=== PATIENT | male | born 1950 | race Hispanic/Latino ===

== ENCOUNTER → 2019-01-15 | Outpatient (CLI) | payer MEDICARE | END | disposition home or self-care (01) | LOC: RAH 14:01 | PROVIDERS: ATTEND Urology | DX: N32.89 Other specified disorders of bladder (principal); R31.29 Other microscopic hematuria | CPT/HCPCS: 76770 ==

== ENCOUNTER → 2024-09-15 | Outpatient (CLI) | payer MEDICARE ==
--- NOTE | 2024-09-17 00:13 | HMCSR ---
APPROVED REPORT EXAM: Two-dimensional and M-mode echocardiogram with Doppler and color Doppler. INDICATION ICD: Cardiac murmur, unspecified R01.1 2D Dimensions RVDd4.5 cmLVEF(%)57.6 (>50%)LVED Vol(simp.)150.0 mL IVSd1.1 (0.7-1.1cm)FS(%)30 %LVES Vol(simp.)67.0 mL LVDd5.0 (3.8-5.6cm)Ao Root(2D)3.2 (2.0-3.7cm)LVEF(%, simp.)55 % PWd1.2 (0.7-1.1cm)LVOT diam2.0 (1.8-2.4cm)LA ESV INDEX (BP)38.08 mL/m2 LVDs3.5 (2.5-4.0cm)IVC diam1.1 cm Aortic Valve AoV Vmax2.1 m/Angelia Peak GR17.1 mmHgLVOT Vmax1.2 m/s AoV VTI0.5 mAo Mean GR8.8 mmHgLVOT VTI0.25 m JESUSITA (VMAX)1.7 cm2Al P1/2T609 msAVA (VTI) 1.7 cm2 Mitral Valve MV E Vmax81.1 cm/sDECEL Rlme253 ms MV A Wxmf625.6 cm/s E/A ratio0.6 MR Max PG88 mmHg TDI E/E' Baiuuh50.7E/E' Xggdxhq39.7 Pulmonary Valve PV Vmax1.0 m/sPV VTI0.21 mPV Mean GR2 mmHg PV Peak GR3.7 mmHgPI End Brianna. Phill 1.0 cm/s Tricuspid Valve TR Vmax1.4 m/sRAP (EST) 3 ynNxVTLZ56.1 mmHg TR Peak GR8.1 mmHg Left Ventricle The left ventricle is normal in size. No regional wall motion abnormalities noted. Moderate concentri c left ventricular hypertrophy. Left ventricular systolic function is normal, estimated LVEF 55 to 60 %. Stage I diastolic dysfunction. Right Ventricle The right ventricle is normal in size. The right ventricular systolic function is normal. Atria The left atrium is mildly dilated, 38 mL/m. The right atrium size is normal. Aortic Valve Aortic valve is trileaflet. The leaflets are moderately thickened and calcified. Mild aortic regurgit ation, pressure half-time 609 ms. There is aortic sclerosis without stenosis. Peak velocity 2.1 m/s, mean gradient 9 mmHg. Mitral Valve The mitral valve is normal in structure and function. The leaflets are mildly thickened and calcified . Mild mitral regurgitation. There is no mitral valve stenosis. Tricuspid Valve The tricuspid valve leaflets appear normal. Trace tricuspid regurgitation. RVSP is 8 mmHg. Pulmonic Valve Pulmonic valve is not well visualized. Great Vessels The aortic root is normal in size. The IVC is normal in size and collapses >50% with inspiration. Pericardium No pericardial effusion. Conclusion The left atrium is mildly dilated, 38 mL/m. Moderate concentric left ventricular hypertrophy. No regional wall motion abnormalities noted. Left ventricular systolic function is normal, estimated LVEF 55 to 60%. Stage I diastolic dysfunction. There is aortic sclerosis without stenosis. Peak velocity 2.1 m/s, mean gradient 9 mmHg. Mild aortic regurgitation, pressure half-time 609 ms. Mild mitral regurgitation. Trace tricuspid regurgitation. PASP is 11 mmHg. No pericardial effusion.
== END | disposition home or self-care (01) ==
LOC: SHCH 11:15
PROVIDERS: ATTEND Internal Medicine Cardiovascular Disease
DX: I08.0 Rheumatic disorders of both mitral and aortic valves (principal); R01.1 Cardiac murmur, unspecified
CPT/HCPCS: 93306